=== PATIENT | female | born 1990 | race Caucasian/White ===

== ENCOUNTER 2025-03-29 10:03 | Inpatient (IN) ==
[2025-03-29] MEDS: LACTATED RINGER'S 1,000 ML IV SCH (10:45)
--- NOTE | 2025-03-29 10:49 | History & Physical Report ---
Date of Service March 29, 2025 Assessment & Plan (1) Breech presentation of fetus: Plan: primary planned Present on Admission?: Yes History of Present Illness Chief Complaint: ruptured membranes Primary Care Provider: Koby Bronw PA-C 35 F P0000 at 38.2 weeks presents this morning to L&D after noting clear fluid with white specs while getting up to use the restroom early this morning. She is known to be breech. Bedside ultrasound was performed by me confirming odessa breech presentation. AmniSure was done confirming rupture. GBS is positive. course has been uncomplicated. Allergies Allergy/AdvReac Type Severity Reaction Status Date / Time No Known Drug Allergies Allergy Verified 03/26/25 15:07 Home Medications Medication Instructions Recorded Confirmed Type vit no.95-ferrous 1 tab PO DAILY 03/26/25 03/26/25 History fumarate 28 mg-folic acid 800 mcg tablet () Patient History Medical History No known health problems Surgical History No history of previous surgery H/O oral surgery wisdom tooth extracted, done under local Family History Other Breast cancer No family history of adverse response to anesthesia Denies family history of Ovarian cancer Colorectal cancer Social History Smoking Status: Never smoker Second Hand Exposure: No; Do You Dip or Chew Tobacco: No; Hx Alcohol Use: No Hx Substance Use: No Preferred Language: Belarusian Communication Ability: Effective Strings Teacher Required: No Beliefs That Will Affect Care: None Current Living Situation: Spouse Feels Safe at Home: Yes Assistive Devices: Glasses OB History primigravida LEARNING TECHNOLOGIES SPECIALIST History neg. Review of Systems All systems reviewed & are unremarkable except as noted in HPI & below Physical Exam Constitutional: WD/WN, vitals as above Eyes: PERRL, conjunctivae normal, anicteric sclerae Respiratory: normal respiratory effort Cardiovascular: Rate/Rhythm: regular rate and regular rhythm Gastrointestinal (Abdomen): Inspection/Auscultation: abdomen normal to inspection Musculoskeletal: Extremities: extremities normal to inspection Skin: no rashes, warm and dry Neurologic: patellar DTR's 2+ bilat, sensation intact Psychiatric: A+Ox3, euthymic affect Genitourinary: OB Exam Monitor Tracing: + external FHT monitor used, + external uterine monitor used, + category I and + normal FHT variability Results & Data Vital Signs (Past 12 Hours) Vital Signs Pulse BP 03/29/25 10:27 98 H 129/86 Diagnostic Findings Amnisure positive Code Status & VTE Plan VTE Prophylaxis Plan VTE Prophylaxis will be ordered: Yes Monitoring External Monitor Cat 1 (1) Breech presentation of fetus Fetus number: single or unspecified fetus Qualified Code(s): O32.1XX0 - Ma ternal care for breech presentation, not applicable or unspecified
[2025-03-29] MEDS: CITRIC ACID/SODIUM CITRATE 15 ML UDC PO SCH (11:01)
[2025-03-29] MEDS: ACETAMINOPHEN 500 MG TAB PO SCH (11:01)
[2025-03-29] MEDS ORDERED: MoRPHine SULFATE PF 1 MG/ML 10 ML AMP/VIAL ONE (11:01)
[2025-03-29] MEDS ORDERED: PHENYLEPHRINE HCL 25 MG/250 ML NSS IV ONE (11:01)
[2025-03-29] MEDS: ACETAMINOPHEN 500 MG TAB ONE (11:05)
[2025-03-29 11:06] LABS: Hematocrit (blood only) 36.1 % (37.0-47.0); Hemoglobin 12.6 g/dl (12.0-16.0); Mean Corpuscular Hemoglobin 31.0 pg (25.0-34.0); Mean Corpuscular Volume 88.7 fL (80.0-100.0); Platelet Count 229 K/uL (130-400); RDW Standard Deviation 40.8 fL (36.4-46.3); Red Blood Count 4.07 M/uL (4.20-5.40); White Blood Count 11.00 K/ul (4.8-10.8)
[2025-03-29] MEDS ORDERED: ONDANSETRON INJ 2 MG/ML 2 ML VIAL ONE (11:08)
[2025-03-29] MEDS: AZITHROMYCIN 500 MG/255 ML BAG IV SCH (11:19)
[2025-03-29] MEDS ORDERED: ONDANSETRON INJ 2 MG/ML 2 ML VIAL IV PRN (11:33)
[2025-03-29] MEDS ORDERED: NALOXONE HCL 1 MG in SODIUM CHLORIDE 0.9% 1,000 ML IV PRN (11:33)
[2025-03-29] MEDS ORDERED: diphenhydrAMINE 50 MG/ML VIAL IV PRN (11:33)
[2025-03-29] MEDS ORDERED: MoRPHine SULFATE PF 1 MG/ML 10 ML AMP/VIAL INT SPINAL ONE (11:33)
[2025-03-29] MEDS ORDERED: NALOXONE HCL 0.08 MG in SYRINGE 1.8 ML IV PRN (11:33)
[2025-03-29] MEDS ORDERED: NALBUPHINE HCL INJ 10 MG/ML AMP IV PRN (11:33)
[2025-03-29] MEDS ORDERED: LACTATED RINGER'S 500 ML IV PRN (11:33)
[2025-03-29] MEDS ORDERED: NALOXONE HCL 0.4 MG/1 ML VIAL/CARP IV PRN (11:33)
[2025-03-29] MEDS ORDERED: DROPERIDOL 5 MG/2 ML VIAL IV PRN (11:33)
--- NOTE | 2025-03-29 11:37 | Anesthesiology Consultation ---
Date of Service March 29, 2025 Assessment & Plan Chart Review Chart Review: Acceptable Risk for Surgery and Patient NOT seen in Pre Admission Testing Consults Requested none History Surgery Operation Date: 03/29/25 12:00 Proposed Procedures p Section in LD - Heber Galo MD Height/Weight Height: 5 ft 3 in Weight: 86.636 kg Allergies Allergy/AdvReac Type Severity Reaction Status Date / Time No Known Drug Allergies Allergy Verified 03/26/25 15:07 Medications Home Medications Medication Instructions Recorded Confirmed Last Taken vit no.95-ferrous 1 tab PO DAILY 03/26/25 03/26/25 Unknown fumarate 28 mg-folic acid 800 mcg tablet () Active Medications Generic Name Dose Route Start Last Admin Trade Name Freq PRN Reason Stop Dose Admin Acetaminophen 1,000 mg 03/29/25 06:00 03/29/25 11:01 Acetaminophen 500 Mg Tab PO 04/28/25 05:59 1,000 mg PREOP KATY Administration Lactated Ringer's 1,000 mls @ 999 mls/hr 03/29/25 10:45 03/29/25 10:45 Lr IV 03/29/25 11:45 999 mls/hr .Q1H1M KATY Administration Azithromycin 500 mg in 255 mls @ 127.5 mls/hr 03/29/25 11:00 03/29/25 11:19 Zithromax IV 03/29/25 12:59 127.5 mls/hr PREOP KATY Administration NPO Date Last Intake of Fluids: 03/29/25 Time Last Intake of Fluids: 11:00 Date Last Intake of Solids: 03/28/25 Time Last Intake of Solids: 19:30 Past Medical History Medical History No known health problems Past Family History Family History Other Breast cancer No family history of adverse response to anesthesia Denies family history of Ovarian cancer Colorectal cancer Past Surgical History Surgical History No history of previous surgery H/O oral surgery wisdom tooth extracted, done under local Social History Smoking Status: Never smoker Do You Dip or Chew Tobacco: No Hx Alcohol Use: No Hx Substance Use: No substance use type: does not use Physical Exam Vital Signs Last Vital Signs Temp 37.3 C 03/29/25 10:48 Pulse 98 H 03/29/25 10:27 Resp 20 03/29/25 10:48 BP 129/86 03/29/25 10:27 Testing Laboratory Results 03/29/25 10:53
[2025-03-29] MEDS: CITRIC ACID/SODIUM CITRATE 15 ML UDC ONE (11:40)
[2025-03-29] MEDS ORDERED: OXYTOCIN 10 UNITS/ML VIAL ONE ×3 (11:42)
[2025-03-29] MEDS ORDERED: NO NARCOTICS OR SEDATIVES SCH (11:45)
[2025-03-29] MEDS ORDERED: LACTATED RINGER'S 1,000 ML IV SCH ×2 (11:45→12:40)
[2025-03-29] MEDS ORDERED: SODIUM CHLORIDE 0.9% 1,000 ML IV SCH (11:45)
[2025-03-29] MEDS ORDERED: DC INTRASPINAL MORPHINE SCH (11:45)
--- NOTE | 2025-03-29 12:31 | Post Operative Brief Note ---
Immediate Post Op Note Date of Surgery March 29, 2025 Pre & Post Diagnosis Operation Date: 03/29/25 12:00 Pre-Op Diagnosis: 1. Term - Breech 2. Labor 3. Ruptured Membranes Post-Op Diagnosis: Same I identified the patient and participated in the time-out.: Yes Procedure Operation Date: 03/29/25 12:00 Actual Procedures p Section in LD; Primary lower uterine transverse Section for the of a live girl infant at 1147.(Bilateral) - Heber Galo MD Surgeon Heber Galo MD Integration Manager Modesta Flowers RN Estimated Blood Loss 329 (QBL) Findings Consistent with Post-Op Diagnosis live male odessa breech Apgars 8/9 Weight 6-10 nuchal cord x1 Fluids 800 ml Specimens placenta Drains Mark Catheter Anesthesia Type Spinal Complications none Disposition Accompanied Patient To Recovery: Yes Overlapping Procedure I was present for: the critical portions of procedure. I was immediately available: during the entire case. Back up surgeon: was not required during procedure.
--- NOTE | 2025-03-29 12:35 | Operative Report ---
Post Operative Report Pre & Post Diagnosis Operation Date: 03/29/25 12:00 Pre-Op Diagnosis: 1. Term - Breech 2. Labor 3. Ruptured Membranes Post-Op Diagnosis: Same I identified the patient and participated in the time-out.: Yes Procedure Operation Date: 03/29/25 12:00 Actual Procedures p Section in LD; Primary lower uterine transverse Section for the of a live girl at 1147.(Bilateral) - Heber Galo MD Surgeon Heber Galo MD Rope Walker Modesta Flowers RN Quantitative Blood Loss (QBL) 329 ml Findings Consistent with Post-Op Diagnosis live female odessa breech Apgars 8/9 Fluids 800 ml. Specimens placenta Drains none Anesthesia Type Spinal Disposition Accompanied Patient To Recovery: Yes Indications breech in labor Description of Procedure Under satisfactory spinal anesthesia the patient was prepped and draped in the usual sterile fashion. A timeout was called and antibiotics were given preop. A low Pfannenstiel incision was made carried the incision down through the layers of the abdomen with successive layers without difficulty upon entering into the abdomen the bladder flap was then made with sharp dissection using Metzenbaum scissors the bladder blade was entered low segment transverse incision over the lower uterine segment was made the incision was nicked amniotic fluid was noted to be clear incision was widened in the AP diameter the infant was found to be in the odessa breech presentation with the legs extending the delivery was accomplished after removing the breech from the pelvis there was a nuchal cord x 1 reduced at time of delivery the cord was cut clamped after 1 minute delay Apgars were 8 and 9 white female weight was 6 pounds 10 ounces Cord blood was then obtained. The uterus was then exteriorized the left placenta was delivered intact spontaneously this was submitted to pathology uterus was noted to be firm angle sutures were clamped with both ring forceps and then the uterus was closed in a double layer closure starting with a 0 Vicryl suture in an interlocking fashion followed by a second deprecating suture of 0 Vicryl suture. The sponge needle and instrument counts on the initial count were correct the tubes ovaries bilaterally were found to be within normal limits the uterus was then placed back into the normal anatomical position and once more inspected where there were no bleeding. The fascia was then reapproximated using 0 Vicryl suture in a continuous fashion. Subcuticular layer was then closed using 3-0 plain suture interrupted followed by 4-0 Monocryl subcuticular stitch. QBL was 329 mL total fluids 800 mL and the urine output was 100 mL clear. The final sponge needle instrument count were found to be correct the patient was then placed supine on a stretcher moved to recovery room in stable condition I attest to the content of the Intraoperative Record and any orders documented therein. Any exceptions are noted below.
[2025-03-29] MEDS ORDERED: SENNA 8.6 MG TAB PO PRN (12:40)
[2025-03-29] MEDS ORDERED: BENZOCAINE 20% SPRY 85 APPLN/85 GM CAN EXT PRN (12:40)
[2025-03-29] MEDS ORDERED: HYDROCORTISONE ACETATE 25 MG SUPP PR PRN (12:40)
[2025-03-29] MEDS ORDERED: CALCIUM CARBONATE 500 MG CHEWABLE TAB PO PRN (12:40)
[2025-03-29] MEDS: DIPHTHER/TETAN/PERTUS Vaccine (Tdap, Adol/Adult) 0.5mL IM ONE (12:41)
[2025-03-29] MEDS: OXYTOCIN 20 UNITS/LR 1,002 ML IV SCH (12:47)
[2025-03-29] MEDS: KETOROLAC 30 MG/ML VIAL IV SCH (12:49)
--- NOTE | 2025-03-29 13:20 | Anesthesiology Progress Note ---
Date of Service March 29, 2025 Anesthesia Post Procedure Vital Signs Vital Signs: Temp Pulse Resp BP Pulse Ox 03/29/25 13:15 71 102/62 03/29/25 13:14 68 99 03/29/25 13:09 64 99 03/29/25 13:07 67 96/52 L 03/29/25 13:04 70 98 03/29/25 12:59 69 97 03/29/25 12:55 69 106/66 03/29/25 12:54 70 97 03/29/25 12:49 67 97 03/29/25 12:45 65 102/65 03/29/25 12:44 67 99 03/29/25 12:39 64 99 03/29/25 12:35 76 107/62 03/29/25 12:34 74 98 03/29/25 12:31 75 91 03/29/25 12:29 73 98 03/29/25 12:25 82 106/67 03/29/25 12:24 81 98 03/29/25 11:19 22 03/29/25 11:19 22 03/29/25 10:48 37.3 C 20 03/29/25 10:27 98 H 129/86 Notes Mental Status: alert / awake / arousable Patient Amnestic to Procedure: Yes Nausea / Vomiting: adequately controlled Pain: adequately controlled Airway Patency, RR, SpO2: stable & adequate BP & HR: stable & adequate Hydration State: stable & adequate Neuraxial Anesthesia: was administered Anesthetic Complications: no major complications apparent
[2025-03-29] MEDS: HYDROmorphone INJ 0.5 MG/0.5 ML SYR IV PRN (14:39)
[2025-03-29] MEDS: SIMETHICONE 80 MG CHEW PO SCH (17:52)
[2025-03-29] MEDS: ACETAMINOPHEN 325 MG TAB PO SCH (17:52)
[2025-03-29] MEDS: DOCUSATE SODIUM 100 MG CAP PO SCH (21:25)
[2025-03-30] MEDS ORDERED: diphenhydrAMINE Capsule 25 MG CAP PO PRN (05:34)
[2025-03-30] MEDS ORDERED: ONDANSETRON INJ 2 MG/ML 2 ML VIAL IV PRN (05:34)
[2025-03-30] MEDS ORDERED: diphenhydrAMINE 50 MG/ML VIAL IV PRN (05:34)
[2025-03-30] MEDS ORDERED: HYDROmorphone INJ 0.5 MG/0.5 ML SYR IV PRN (05:34)
[2025-03-30] MEDS ORDERED: PROMETHAZINE 12.5 MG/50.5 ML BAG IV PRN (05:34)
[2025-03-30 07:02] LABS: Hematocrit (blood only) 33.1 % (37.0-47.0); Hemoglobin 11.7 g/dl (12.0-16.0); Immature Granulocytes # (auto) 0.15 K/uL (0.01-0.20); Immature Granulocytes % (auto) 1.3 %; Mean Corpuscular Hemoglobin 32.1 pg (25.0-34.0); Mean Corpuscular Volume 90.7 fL (80.0-100.0); Platelet Count 174 K/uL (130-400); RDW Standard Deviation 41.7 fL (36.4-46.3); Red Blood Count 3.65 M/uL (4.20-5.40); White Blood Count 11.37 K/ul (4.8-10.8)
--- NOTE | 2025-03-30 07:22 | Obstetrical Progress Note ---
Date of Service March 30, 2025 Subjective Ambulation: ambulating normally Voiding: no voiding problems Passing Gas:: Yes Diet Tolerance:: regular diet Lochia:: Small Feeding Type:: breast feeding Current Pain Level(1-10): 0 doing well Physical Exam Constitutional WD/WN, vitals as above Respiratory normal respiratory effort Cardiovascular Rate/Rhythm: regular rate and regular rhythm Gastrointestinal (Abdomen) Inspection/Auscultation: abdomen normal to inspection incision c/d/i Musculoskeletal Extremities: extremities normal to inspection Skin no rashes, warm and dry Neurologic patellar DTR's 2+ bilat, sensation intact Psychiatric A+Ox3, euthymic affect Results & Data Vital Signs (Past 12 Hours) Vital Signs Temp Pulse Resp BP Pulse Ox O2 Del Method 03/30/25 04:00 16 98 03/30/25 03:55 16 98 03/30/25 03:55 36.6 C 78 16 108/74 98 Room Air 03/30/25 02:00 18 98 03/30/25 01:00 16 98 03/30/25 00:15 36.7 C 70 18 110/72 99 Room Air 03/30/25 00:00 16 96 03/29/25 23:00 16 96 03/29/25 22:22 16 98 03/29/25 21:00 16 98 03/29/25 20:15 36.9 C 66 18 110/73 98 Room Air 03/29/25 20:00 16 96 Laboratory Results 03/29/25 03/30/25 10:53 06:43 WBC 11.00 H 11.37 H RBC 4.07 L 3.65 L Hgb 12.6 11.7 L Hct 36.1 L 33.1 L MCV 88.7 90.7 MCH 31.0 32.1 MCHC 34.9 35.3 RDW Std Deviation 40.8 41.7 RDW Coeff of Jose 12.6 12.6 Plt Count 229 174 MPV 10.1 10.4 Immature Gran % (Auto) 1.3 Neut % (Auto) 85.1 Lymph % (Auto) 6.5 [place] % (Auto) 6.2 Eos % (Auto) 0.5 Baso % (Auto) 0.4 Neut # (Auto) 9.67 H Lymph # (Auto) 0.74 L [place] # (Auto) 0.71 H Eos # (Auto) 0.06 Baso # (Auto) 0.04 Immature Gran # (Auto) 0.15 Treponema pallidum Ab Negative Blood Type A Positive Antibody Screen NEGATIVE
[2025-03-30] MEDS: FERROUS SULFATE 325 MG TAB PO SCH (07:48)
[2025-03-30] MEDS: PRENATAL VITAMIN 1 TAB PO SCH (07:48)
[2025-03-30] MEDS ORDERED: NON-FORMULARY MEDICATION (Pnv No.95-Ferrous Fumarate-Fa [Prenatal] 28 mg iron- 800 mcg Tab PO SCH (09:00)
[2025-03-30] MEDS ORDERED: KETOROLAC 30 MG/ML VIAL IV PRN (12:23)
[2025-03-30] MEDS: IBUPROFEN 600 MG TAB PO SCH (12:28)
[2025-03-30] MEDS: MAGNESIUM HYDROXIDE SUSP 30 ML UDC PO PRN (17:57)
[2025-03-31 08:16] LABS: Hematocrit (blood only) 33.3 % (37.0-47.0); Hemoglobin 11.6 g/dl (12.0-16.0)
--- NOTE | 2025-03-31 11:13 | Obstetrical Progress Note ---
Date of Service March 31, 2025 Assessment & Plan Admission and Anticipated Discharge Date Admission Date: March 29, 2025 Subjective abdomen soft and non tender bowel sounds present passing gas incision is clean and dry no calf tenderness ambulating well vaginal bleeding scant hgb 11.6 Results & Data Vital Signs (Past 12 Hours) Vital Signs Temp Pulse Resp BP Pulse Ox O2 Del Method 03/31/25 07:15 36.7 C 74 18 112/77 99 Room Air 03/31/25 00:05 36.8 C 71 18 120/80 98 Room Air
[2025-03-31] MEDS: IBUPROFEN 600 MG TAB PO PRN (12:46)
[2025-03-31] MEDS: ACETAMINOPHEN 325 MG TAB PO PRN (18:26)
--- NOTE | 2025-04-01 10:35 | Obstetrical Progress Note ---
Date of Service April 01, 2025 Assessment & Plan (1) delivery delivered: Pt is s/p section day #3 Pt doing well No complaints Pain adequately controlled with medications Stable vital Stable H/H: 11.6/31.3 Tolerating PO food and Meds Ambulating w/o difficulty + BS, No BM Incision: Clean , dry and Intact Pt wishes to be discharged hoe Subjective Ambulation: ambulating normally Voiding: no voiding problems Passing Gas:: Yes Diet Tolerance:: clear liquids Lochia:: Small Feeding Type:: breast feeding Review of Systems All systems reviewed & are unremarkable except as noted in HPI & below Physical Exam Constitutional WD/WN, vitals as above well developed and well nourished Eyes PERRL, conjunctivae normal, anicteric sclerae ENMT external ear and nose normal, oropharynx normal Neck trachea midline, no thyromegaly Respiratory normal respiratory effort, lungs clear to auscultation Cardiovascular RRR, no murmur, no edema Chest (Breasts) normal inspection/palpation of breasts Gastrointestinal (Abdomen) normal bowel sounds, soft, nontender, no hepatosplenomegaly Musculoskeletal no cyanosis or clubbing, extremities motor strength 5/5 Skin no rashes, warm and dry + incision (Clean,dry and intact) Neurologic patellar DTR's 2+ bilat, sensation intact Psychiatric A+Ox3, euthymic affect Genitourinary normal external appearance Lymphatic no cervical or axillary lymphadenopathy Results & Data Vital Signs (Past 12 Hours) Vital Signs Temp Pulse Resp BP Pulse Ox O2 Del Method 04/01/25 00:40 36.5 C 71 18 118/82 98 Room Air
[2025-04-01 10:36] VITALS: RESP 16; TEMP 98.1; O2SAT 99
[2025-04-01 10:51] VITALS: BP 117/76; PULSE 75
== END 2025-04-01 14:31 | disposition home or self-care (01) | DRG 788 ==
LOC: OPB 10:03 → 4S1 10:08 → 4E2 15:00